=== PATIENT | female | born 1965 | race Caucasian/White ===

== ENCOUNTER 2017-05-13 08:28 | Day surgery (SDC) | payer OTHER, MEDICAID ==
[~2017-05-13 08:28] MED LIST: CEFAZOLIN 2 GM/50 ML (PMX) 50 ML IVPB; SOD CHLORIDE 0.9% 1,000 ML IV; SUCCINYLCHOLINE CHLORIDE 100 MG/5 ML SYG IV
[2017-05-13] MEDS ORDERED: MIDAZOLAM 1 MG/ML 2 ML INJ (10:45)
[2017-05-13] MEDS ORDERED: CEFAZOLIN 1 GM INJ (10:45)
[2017-05-13] MEDS ORDERED: FENTAnyl 50 MCG/ML VIAL (10:45)
[2017-05-13] MEDS ORDERED: NEOSTIGMINE 3 MG/3 ML SYRINGE (10:45)
[2017-05-13] MEDS ORDERED: ONDANSETRON 4 MG INJ ×2 (10:45→11:56)
[2017-05-13] MEDS ORDERED: PROPOFOL 20 ML (10:45)
[2017-05-13] MEDS ORDERED: DEXAMETHASONE 4 MG/ML 1 ML INJ (10:45)
[2017-05-13] MEDS ORDERED: GLYCOPYRROLATE 0.4 MG INJ (10:45)
[2017-05-13] MEDS ORDERED: ROCURONIUM 50 MG INJ (10:45)
[2017-05-13] MEDS ORDERED: PHENYLephrine (100 MCG/ML) 5ML SYG (11:01)
[2017-05-13] MEDS: BUPIVACAINE 0.5% (SDV) 30 ML INJ (11:40)
[2017-05-13] MEDS ORDERED: MEPERIDINE 25 MG INJ (11:56)
[2017-05-13] MEDS: MEPERIDINE 25 MG INJ IV (12:00)
[2017-05-13] MEDS ORDERED: FENTAnyl 50 MCG/ML VIAL IV (12:00)
[2017-05-13] MEDS ORDERED: ONDANSETRON 4 MG INJ IV (12:00)
== END 2017-05-13 14:30 | disposition home or self-care (01) ==
LOC: SDS 08:28
DX: D17.1 Benign lipomatous neoplasm of skin and subcutaneous tissue of trunk (principal)
CPT/HCPCS: 11406; 88307